=== PATIENT | male | born 1995 | race African-American/Black ===

== ENCOUNTER 2021-12-07 20:34 | Emergency (ER) | payer OTHER, SELFPAY ==
--- NOTE | ~2021-12-07 | XR_ITS ---
EXAMINATION: XR chest 2V DATE: 12/07/2021 21:38 INDICATION: Chest pain and dizziness TECHNIQUE: PA and lateral views of the chest are obtained. COMPARISON: None available FINDINGS: The lungs are free of acute opacities. There is no pleural effusion or pneumothorax. The ca rdiomediastinal silhouette is normal. The visualized bones and soft tissues are unremarkable. IMPRESSION: 1. No acute cardiopulmonary abnormality. Reviewed, dictated and finalized at location F.
[2021-12-07 21:00] VITALS: BP 133/80; PULSE 68; RESP 18; TEMP 36.7; O2SAT 100
--- NOTE | 2021-12-07 21:09 | ECG_ITS ---
Measurements Intervals [place] Rate: 70 P: -2 TN: 180 QRS: 73 QRSD: 89 T: -3 QT: 361 QTc: 390 Interpretive Statements SINUS RHYTHM ST ELEVATION CONSISTENT WITH INJURY, PERICARDITIS, OR EARLY REPOLARIZATION [ST ELEVATION W/O NORMALLY INFLECTED T WAVE] ST DEVIATION AND MODERATE T-WAVE ABNORMALITY, CONSIDER LATERAL ISCHEMIA [-0.1+ mV T WAVE IN I/aVL/V5/V6] ST DEVIATION AND MODERATE T-WAVE ABNORMALITY, CONSIDER INFERIOR ISCHEMIA [-0.1+ mV T WAVE IN II/aVF] ABNORMAL ECG NO PREVIOUS ECG AVAILABLE FOR COMPARISON Electronically Signed On 12-08-2021 16:54:52 CDT by Ye Vogt M.D.
--- NOTE | 2021-12-07 21:18 | ED.CHESTPAIN ---
HPI - Chest Pain General Chief Complaint: Chest Pain Stated Complaint: chest pain Time Seen by Provider: 12/07/21 21:06 History of Present Illness HPI narrative: Patient is a 26-year-old male here for evaluation of chest pain over the past week. He notes the pain is intermittent in nature, coming on randomly without obvious triggers. Describes the pain as sharp and shooting, but he states it is occasionally feeling a tightness. The pain is on the left side of his chest and does not radiate. He has not tried any medications for his pain. Does note that he has been feeling short of breath with exertion today, which is new for him, and notes some intermittent lightheadedness over the past week. States that he has lots of anxietydenies ear pain, congestion, cough, headaches, recent surgery or trauma, prior PE, calf pain or leg swelling. Patient tells me he has a history of a pediatric heart murmur and palpitations, and was reportedly admitted overnight when he was 18 for the symptoms. Was told it was attributed to caffeine use. Related Data Allergies Allergy/AdvReac Type Severity Reaction Status Date / Time No Known Allergies Allergy Verified 12/07/21 21:05 Review of Systems Review of Systems: Gen: Denies fevers or chills Eyes: Denies eye pain or visual change ENT: Denies congestion Respiratory: Reports shortness of breath. Denies cough CV: Reports chest pain GI: Denies abdominal pain nausea, emesis or diarrhea : denies burning, urgency, frequency or hematuria Musculoskeletal: Denies back pain or muscle pain Neuro: Denies numbness, tingling, weakness or focal weakness Skin: Denies rash Except as documented, all other systems reviewed and negative Exam Narrative: APPEARANCE: Well appearing, no pain in distress, well-nourished. Head normocephalic and atraumatic. EYES: PERRLA/EOMI, conjunctivae clear NOSE: No nasal drainage EARS: External ear normal in appearance THROAT: Oropharynx is clear. Mucous membranes are moist. NECK: Supple. No adenopathy, no masses. RESPIRATORY: Airway patent, respirations nonlabored. Clear to auscultation bilaterally, no rales, rhonchi, wheezing. CARDIOVASCULAR: Regular rate and rhythm without murmurs, rubs, or gallops. ABDOMINAL: Normoactive bowel sounds. Soft, nontender, nondistended. No rebound tenderness or guarding. MUSCULOSKELETAL: Extremities are warm and well-perfused. Moves all extremities well. No edema. NEURO: Normal speech. No focal neurologic deficits. SKIN: Skin is warm and dry. No rashes. PSYCHIATRIC: Normal affect/mood.. Course Vital Signs Vital signs: Vital Signs Temperature 98.0 F 12/07/21 21:00 Pulse Rate 68 12/07/21 21:00 Respiratory Rate 18 12/07/21 21:00 Blood Pressure 133/80 12/07/21 21:00 Pulse Oximetry 100 12/07/21 21:00 Oxygen Delivery Room Air 12/07/21 21:00 Temperature 98.0 F 12/07/21 21:00 Pulse Rate 67 12/07/21 23:42 Respiratory Rate 18 12/07/21 23:42 Blood Pressure 123/79 12/07/21 23:42 Pulse Oximetry 100 12/07/21 23:42 Oxygen Delivery Room Air 12/07/21 21:00 MDM - Chest Pain MDM Narrative Medical decision making narrative: 26-year-old male here for evaluation of chest pain over the past week, denies chest pain while in the ED. Vital signs normal, chest pain is reproducible on palpation of chest, heart and lungs clear to auscultation. Exam without evidence of volume overload so doubt heart failure. EKG with evidence of early repolarization; no previous to compare to. Given the timing of pain to ER presentation, single troponin was negative so doubt NSTEMI. Presentation not consistent with acute PE (perc negative),pneumothorax (not visualized on chest xr), thoracic aortic dissection (equal radial pulses), tamponade, pneumonia (no infectious symptoms, clear chest xr), myocarditis (no recent illness, neg trop). Considered pericarditis, but feel unlikely given lack of friction rub, lack of preceding viral type symptoms,
[2021-12-07 21:37] LABS: Basophils Absolute Auto 0.1 K/mm3 (0.0-0.1); Basophils Percent Auto 1.5 % (0.2-1.2); Eosinophils Absolute Auto 0.2 K/mm3 (0-0.3); Eosinophils Percent Auto 3.4 % (0-4.4); Hematocrit 47.1 % (42.0-52.0); Immature Granulocyte Absolute 0.01 K/mm3 (0.00-0.031); Immature Granulocyte Percent A 0.2 % (0-0.5); Lymphocytes Absolute Auto 2.31 K/mm3 (0.9-3.2); Lymphocytes Percent Auto 49.4 % (18.3-44.2); Mean Corpuscular HGB Conc 31.8 g/dl (32-36); Mean Corpuscular Hemoglobin 28.6 pg (26-34); Mean Corpuscular Volume 89.7 fl (80-100); Mean Platelet Volume 10.3 fl (7.4-10.4); Monocytes Absolute Auto 0.6 K/mm3 (0.1-0.6); Monocytes Percent Auto 12.8 % (2.6-8.5); Neutrophils Absolute Auto 1.5 K/mm3 (1.3-6.7); Neutrophils Percent Auto 32.7 % (45.5-73.1); Platelet Count Result 189 k/mm3 (150-375); Red Blood Count 5.25 M/mm3 (4.6-6.20); Red Cell Distribution Width 12.2 % (11.5-14.5); White Blood Count 4.7 K/mm3 (4.5-10.0)
[2021-12-07 21:48] LABS: INR 1.1; Prothrombin Time 13.8 Seconds (11.1-14.7)
[2021-12-07 21:49] LABS: Alanine Aminotransferase 9 U/L (6-50); Albumin Level 4.4 g/dL (3.5-5.1); Alkaline Phosphatase 60 U/L (38-126); Anion Gap 6 mmol/L (8-16); Aspartate Amino Transferase 30 U/L (17-59); Bilirubin,Total 1.5 mg/dL (0.2-1.3); Blood Urea Nitrogen 19 mg/dL (9-20); Calcium 9.2 mg/dL (8.4-10.2); Carbon Dioxide 30 mmol/L (22-30); Chloride 103 mmol/L (98-107); Estimated CRCL calculation 85 ml/min; Estimated Glomerular Filt Rate > 60; Glucose 97 mg/dL (65-110); Lipase 78 U/L (23-300); Partial Thromboplastin Time 31.9 SECONDS (22.3-36.8); Potassium 3.6 mmol/L (3.4-5.0); Sodium 139 mmol/L (137-145)
[2021-12-07 22:01] LABS: Troponin I < 0.012 ng/mL (0.000-0.034)
[2021-12-07] MEDS: IBUPROFEN 600 MG TABLET PO (22:06)
[2021-12-07] MEDS: ACETAMINOPHEN 325 MG TABLET 650 MG PO (22:06)
[2021-12-07 23:12] VITALS: BP 122/81; PULSE 61; RESP 12; O2SAT 100
[2021-12-07 23:42] VITALS: BP 123/79; PULSE 67; RESP 18; O2SAT 100
== END 2021-12-07 23:42 | disposition home or self-care (01) ==
PROVIDERS: Physician Assistant; Emergency Provider Emergency Medicine
DX: R07.89 Other chest pain (principal); R94.31 Abnormal electrocardiogram [ECG] [EKG]
CPT/HCPCS: 36415; 71046; 80053; 83690; 84484; 85025; 85610; 85730; 93005; 99284; A9270